=== PATIENT | male | born 1990 | race African-American/Black ===

== ENCOUNTER 2021-08-08 13:15 | Emergency (ER) | payer SELFPAY ==
[2021-08-08 16:56] LABS: HEMOGLOBIN A1C 5.4 %
[2021-08-08] MEDS: Sodium Chloride 0.9% 10 ML Syringe FLUSH PRN (17:04)
[2021-08-09 09:37] LABS: C. TRACHOMATIS BY PCR NOT DETECTED; N. GONORRHOEAE BY PCR NOT DETECTED
== END 2021-08-08 18:25 | disposition home or self-care (01) ==
LOC: JD.ED 13:15
DX: N39.0 Urinary tract infection, site not specified (principal); E86.0 Dehydration; Z72.0 Tobacco use
CPT/HCPCS: 36415; 80053; 81001; 83036; 83735; 84443; 85025; 87086; 87491; 87591; 99284